=== PATIENT | male | born 1995 | race Caucasian/White ===

== ENCOUNTER 2017-11-19 21:34 | Observation (INO) ==
--- NOTE | 2017-11-19 22:17 | RAD ---
Chest one view Indication shortness of breath and chest pain Findings: There is normal configuration of the heart and mediastinum. The lungs are clear. The skelet on and regional soft tissues are unremarkable. Impression: Negative exam of the chest Reported By:
[2017-11-19 22:34] LABS: BASOPHILS # (AUTO) 0.1 X10^3/uL (0.0-0.1); BASOPHILS % (AUTO) 1.7 % (0.2-1.0); EOSINOPHILS # (AUTO) 0.2 x10^3/uL (0.0-0.2); LYMPHOCYTES # (AUTO) 2.6 X10^3/uL (1.3-2.9); LYMPHOCYTES % (AUTO) 46.2 % (21.0-51.0); MEAN CORPUSCULAR HEMOGLOBIN 29.7 pg (27.0-34.0); MEAN CORPUSCULAR HGB CONC 34.8 g/dL (33.0-35.0); MEAN CORPUSCULAR VOLUME 85.2 fL (80.0-100.0); MONOCYTES # (AUTO) 0.5 x10^3/uL (0.3-0.8); MONOCYTES % (AUTO) 9.2 % (0.0-13.0); NEUTROPHILS # (AUTO) 2.2 x10^3/uL (2.2-4.8); NEUTROPHILS % (AUTO) 38.9 % (42.0-75.0); PLATELET COUNT 171 X10^3/uL (150.0-450.0); RED BLOOD COUNT 5.05 X10^6/uL (4.7-6.0); RED CELL DISTRIBUTION WIDTH 13.1 % (11.6-16.5); WHITE BLOOD COUNT 5.7 X10^3/uL (3.6-10.0)
[2017-11-19 22:54] LABS: BLOOD UREA NITROGEN 12 mg/dL (7-18); CALCIUM 9.3 mg/dL (8.5-10.1); CARBON DIOXIDE 28.3 mmol/L (21-32); CHLORIDE 103 mmol/L (98-107); SODIUM 139 mmol/L (136-145); TROPONIN I < 0.02 ng/mL (0-1.5); eGFR NON BLACK RACES > 60 (>60)
--- NOTE | 2017-11-19 22:56 | DR.VAGB ---
HPI PCP Primary Care Physician: NFD Complaint Chief Complaint:: Patient presents with complaint of increased vaginal bleeding today. She reports that she has just come off her period week. Had baby last month, just stopped breast feeding last week. Self Treatment fo Chief Complaint: PCN Source History Provided: Patient Mode of Arrival Mode of Arrival: Ambulatory Timing Onset of Chief Complaint: 11/17/17 PMH PMH Past Medical History: No Past Surgical History: No Family History History of Family Medical Conditions: Yes Family Medical History: Diabetes Mellitus and Hypertension Social History Does patient currently use any type of tobacco product: No Have you used tobacco products in the last 12 months: Yes Type of Tobacco Use: Cigarettes Does any household member use tobacco: No Alcohol Use: None Do you use any recreational Drugs:: No Lives With: Family Lives Where: Home infectious screening In the last 2 months have you had wt loss of >10#?: NO Have you had fever, night sweats or hemotysis?: No Have you traveled outside the country in the last 6 months?: No Isolation: Standard ROS Review of Systems Constitutional: No Symptoms Reported and See HPI ENTM: No Symptoms Reported Respiratoy: No Symptoms Reported Gastrointestinal/Abdominal: No Symptoms Reported Neurological: No Symptoms Reported Musculoskeletal: No Symptoms Reported Integumentary: No Symptoms Reported Hematologic/Lymphatic: No Symptoms Reported Endocrine: Increased Hunger Psychiatric: No Symptoms Reported All Other Systems: Reviewed and Negative PE Vital Signs Vitals: Temperature 98.5 F Pulse Rate [Apical] 72 Pulse Rate 73 Respiratory Rate 18 Blood Pressure [Left Arm] 122/71 Blood Pressure 126/66 O2 Sat by Pulse Oximetry 99 General Limitations: No Limitations General Appearance: Alert and In No Apparent Distress Head Head Exam: Normal Inspection Eyes Eye exam: Normal Appearance, PERRL and EOMI ENT ENT Exam: Normal Exam and Normal Oropharynx Neck Neck Exam: Normal Inspection, Full ROM and Trachea Midline; negative Tenderness Chest Chest Inspection: Normal Inspection and Symmetric Chest Wall Rise Respiratory Respiratory Exam: Normal Lung Sounds Bilat; negative Prolonged Expiratory Phase and Respiratory Distress Respiratory Exam: Bilateral: Clear to Auscultation Cardiovascular Cardiovascular Exam: Regular Rate and Normal Rhythm Abdominal Exam Abdominal Exam: negative Distention Rectal Rectal Exam: Deferred Genitourinary : Bimanual Exam (female): Deferred Back Back Exam: Normal Inspection and Full ROM ROR Labs Reviewed Result Diagrams: 11/19/17 22:15 11/19/17 22:15 Laboratory: WBC 5.7 X10^3/uL (3.6-10.0) 11/19/17 22:15 RBC 5.05 X10^6/uL (4.7-6.0) 11/19/17 22:15 Hgb 15.0 g/dL (13.5-18.0) 11/19/17 22:15 Hct 43.0 % (42.0-54.0) 11/19/17 22:15 MCV 85.2 fL (80.0-100.0) 11/19/17 22:15 MCH 29.7 pg (27.0-34.0) 11/19/17 22:15 MCHC 34.8 g/dL (33.0-35.0) 11/19/17 22:15 RDW 13.1 % (11.6-16.5) 11/19/17 22:15 Plt Count 171 X10^3/uL (150.0-450.0) 11/19/17 22:15 MPV 8.0 fL (7.4-11.0) 11/19/17 22:15 Neut % (Auto) 38.9 % (42.0-75.0) L 11/19/17 22:15 Lymph % (Auto) 46.2 % (21.0-51.0) 11/19/17 22:15 [place] % (Auto) 9.2 % (0.0-13.0) 11/19/17 22:15 Eos % (Auto) 4.0 % (0.9-2.9) H 11/19/17 22:15 Baso % (Auto) 1.7 % (0.2-1.0) H 11/19/17 22:15 Neut # (Auto) 2.2 x10^3/uL (2.2-4.8) 11/19/17 22:15 Lymph # (Auto) 2.6 X10^3/uL (1.3-2.9) 11/19/17 22:15 [place] # (Auto) 0.5 x10^3/uL (0.3-0.8) 11/19/17 22:15 Eos # (Auto) 0.2 x10^3/uL (0.0-0.2) 11/19/17 22:15 Baso # (Auto) 0.1 X10^3/uL (0.0-0.1) 11/19/17 22:15 Absolute Nucleated RBC 0.1 /100WBC 11/19/17 22:15
[2017-11-19 22:58] LABS: ALANINE AMINOTRANSFERASE 23 Units/L (12-78); ALKALINE PHOSPHATASE 54 Units/L (46-116); ASPARTATE AMINO TRANSFERASE 17 Units/L (15-37); CKMB % 0.5 % (<4); CREATINE KINASE 280 Units/L (39-308); CREATINE KINASE MB 1.3 ng/mL (0-4.0); TOTAL PROTEIN 7.7 g/dL (6.4-8.2)
[2017-11-19] MEDS ORDERED: K-LYTE EFFERVESCENT PO ONE (23:07)
[2017-11-19] MEDS ORDERED: K-LYTE EFFERVESCENT ONE (23:08)
[2017-11-20 01:34] LABS: BILIRUBIN,URINE NEGATIVE (NEGATIVE); BLOOD/HEMOGLOBIN,URINE 1+ (NEGATIVE); GLUCOSE, URINE NEGATIVE (NEGATIVE); KETONES,URINE 1+ (NEGATIVE); LEUKOCYTE ESTERASE ,URINE NEGATIVE (NEGATIVE); NITRITES,URINE NEGATIVE (NEGATIVE); PROTEIN,URINE NEGATIVE (NEGATIVE); UROBILINOGEN,URINE 1+ (NORMAL)
--- NOTE | 2017-11-20 01:37 | DR.CP ---
HPI Time Seen Time seen: 12:05 PCP Primary Care Physician: NFD Complaint Chief Complaint:: CHEST PAIN TIGHTNESS WITH SHORTNESS OF BREATH THAT STARTED A FEW DAYS AGO. STATES DID FEEL LIKE HE WAS WHEEZING SOME. Self Treatment fo Chief Complaint: PCN Source History Provided: Patient Mode of Arrival Mode of Arrival: Ambulatory Timing Onset of Chief Complaint: 11/17/17 PMH PMH Past Medical History: No Past Surgical History: No Family History History of Family Medical Conditions: Yes Family Medical History: Diabetes Mellitus and Hypertension Social History Does patient currently use any type of tobacco product: No Have you used tobacco products in the last 12 months: Yes Type of Tobacco Use: Cigarettes Does any household member use tobacco: No Alcohol Use: None Do you use any recreational Drugs:: No Lives With: Family Lives Where: Home infectious screening In the last 2 months have you had wt loss of >10#?: NO Have you had fever, night sweats or hemotysis?: No Have you traveled outside the country in the last 6 months?: No Isolation: Standard ROS Review of Systems Constitutional: No Symptoms Reported; negative Diaphoresis, Fever, Malaise and Weakness Eyes: negative No Symptoms Reported and Eye Pain ENTM: No Symptoms Reported; negative Ear Discharge, Pulling on Ears and Hearing Loss Respiratoy: negative No Symptoms Reported, Productive Cough and Non-Productive Cough Cardiovascular: See HPI and Chest Pain (mid left chest pain and back pain w/o diaphoresis, no history of cardiac disease.); negative Palpitations, Syncope and Skin Mottling Gastrointestinal/Abdominal: negative No Symptoms Reported, See HPI, Constipation , Diarrhea, Nausea and Vomiting Genitourinary: negative No Symptoms Reported and Dysuria Neurological: No Symptoms Reported and Tingling Musculoskeletal: See HPI and Back Pain Hematologic/Lymphatic: No Symptoms Reported Endocrine: See HPI Psychiatric: No Symptoms Reported PE Vitals Vitals: Temperature 97.6 F Pulse Rate [Apical] 74 Pulse Rate 73 Respiratory Rate 20 Blood Pressure [Left Arm] 149/72 Blood Pressure 126/66 O2 Sat by Pulse Oximetry 99 General Limitations: No Limitations; negative Language Barrier and Physical Limitation General Appearance: Alert and In No Apparent Distress Head Head Exam: Normal Inspection, Atraumatic and Normocephalic Eyes Eye exam: Normal Appearance, PERRL and EOMI; negative Scleral Icterus, Conjunctival Injection, Nystagmus and Miosis ENT ENT Exam: Normal Exam, Normal Oropharynx, Normal External Ear Exam, Mucous Membranes Moist, TM's Normal Bilaterally and Other Chest Chest Inspection: Symmetric Chest Wall Rise and Tenderness (admits to left anterior chest pain) Respiratory Respiratory Exam: Normal Lung Sounds Bilat; negative Accessory Muscle Use, Chest Wall Tenderness, Prolonged Expiratory Phase, Respiratory Distress and Stridor Respiratory Exam: Bilateral: Clear to Auscultation Cardiovascular Cardiovascular Exam: Normal Rhythm and +S2; negative Gallop Pulse: Normal, Radial and Femoral Abdominal Exam Abdominal Exam: Normal Inspection, Normal Bowel Sounds and Hypoactive Bowel Sounds Abdominal Tenderness: negative RUQ, RLQ and LUQ Extremities Extremities Exam: Normal Inspection, Full ROM and Normal Capillary Refill; negative Tenderness and Joint Swelling Back Back Exam: Normal Inspection and Full ROM; negative Tenderness, (R) CVA Tenderness, (L) CVA Tenderness, Muscle Spasm, (R) Sciatic Notch Tenderness and ( L) Sciatic Notch Tendern Neurologic Neurological Exam: Alert, Oriented X3, CN II-XII Intact, Normal Gait and Reflexes Normal; negative Motor Sensory Deficit Psychiatric Psychiatric Exam: Normal Affect, Normal Mood and Flat Affect; negative Manic, Homicidal Ideation and Suicidal Ideation Skin Skin Exam: Warm, Dry and Intact; negative Diaphoresis COURSE Treatment Treatment: Chest pain protocol ROR Labs Reviewed Laboratory Results Reviewed?: Yes Result Diagrams: 11/20/17 04:14 11/20/17 11:47 Laboratory: WBC 8.7 X10^3/uL (3.6-10.0) 11/20/17 04:14 RBC 5.17 X10^6/uL (4.7-6.0) 11/20/17 04:14 Hgb 15.1 g/dL (13.5-18.0) 11/20/17 04:14 Hct 43.9 % (42.0-54.0) 11/20/17 04:14 MCV 84.7 fL (80.0-100.0) 11/20/17 04:14 MCH 29.3 pg (27.0-34.0) 11/20/17 04:14 MCHC 34.5 g/dL (33.0-35.0) 11/20/17 04:14 RDW 13.0 % (11.6-16.5) 11/20/17 04:14 Plt Count 176 X10^3/uL (150.0-450.0) 11/20/17 04:14 MPV 8.8 fL (7.4-11.0) 11/20/17 04:14 Neut % (Auto) 31.8 % (42.0-75.0) L 11/20/17 04:14 Lymph % (Auto) 52.7 % (21.0-51.0) H 11/20/17 04:14 [place] % (Auto) 9.8 % (0.0-13.0) 11/20/17 04:14 Eos % (Auto) 4.5 % (0.9-2.9) H 11/20/17 04:14 Baso % (Auto) 1.2 % (0.2-1.0) H 11/20/17 04:14 Neut # (Auto) 2.8 x10^3/uL (2.2-4.8) 11/20/17 04:14 Lymph # (Auto) 4.6 X10^3/uL (1.3-2.9) H 11/20/17 04:14 [place] # (Auto) 0.9 x10^3/uL (0.3-0.8) H 11/20/17 04:14 Eos # (Auto) 0.4 x10^3/uL (0.0-0.2) H 11/20/17 04:14 Baso # (Auto) 0.1 X10^3/uL (0.0-0.1) 11/20/17 04:14 Absolute Nucleated RBC 0.0 /100WBC 11/20/17 04:14 Sodium 140 mmol/L (136-145) 11/20/17 04:14 Corrected Sodium TNP 11/20/17 04:14 Potassium 4.0 mmol/L (3.5-5.1) 11/20/17 11:47 Chloride 104 mmol/L (98-107) 11/20/17 04:14 Carbon Dioxide 29.6 mmol/L (21-32) 11/20/17 04:14 BUN 15 mg/dL (7-18) 11/20/17 04:14 Creatinine 1.11 mg/dL (0.70-1.30) 11/20/17 04:14 Est GFR (MDRD) Af Amer > 60 (>60) 11/20/17 04:14 Est GFR (MDRD) Non-Af > 60 (>60) 11/20/17 04:14 Glucose 79 mg/dL (65-99) 11/20/17 04:14 Calcium 9.2 mg/dL (8.5-10.1) 11/20/17 04:14 Corrected Calcium TNP 11/20/17 04:14 Magnesium 2.1 mg/dL (1.7-2.9) 11/20/17 04:44 Total Bilirubin 0.40 mg/dL (0.2-1.0) 11/20/17 04:14 AST 20 Units/L (15-37) 11/20/17 04:14 ALT 22 Units/L (12-78) 11/20/17 04:14 Alkaline Phosphatase 53 Units/L (46-116) 11/20/17 04:14 Creatine Kinase 282 Units/L (39-308) 11/20/17 10:05 CK-MB (CK-2) 1.3 ng/mL (0-4.0) 11/20/17 10:05 CK/CKMB % Calc 0.5 % (<4) 11/20/17 10:05 Troponin I < 0.02 ng/mL (0-1.5) 11/20/17 10:05 Total Protein 7.7 g/dL (6.4-8.2) 11/20/17 04:14 Albumin 3.9 g/dL (3.4-5.0) 11/20/17 04:14 Globulin 3.8 g/dL (2.5-4.5) 11/20/17 04:14 Albumin/Globulin Ratio 1.0 Ratio (1.1-2.1) L 11/20/17 04:14 Triglycerides 40 mg/dL (0-150) 11/20/17 04:14 Cholesterol 139 mg/dL (0-200) 11/20/17 04:14 LDL Cholesterol, Calc 75 mg/dL (0-100) 11/20/17 04:14 HDL Cholesterol 56 mg/dL (40-60) 11/20/17 04:14 Cholesterol/HDL Ratio 2.5 (0.0-5.0) 11/20/17 04:14 Specimen Type Clean catch urine 11/20/17 01:11 Urine Color Yellow (YELLOW) 11/20/17 01:11 Urine Appearance Clear (CLEAR) 11/20/17 01:11 Urine pH 7.0 (5.0 - 8.0) 11/20/17 01:11 Ur Specific [place] 1.010 (1.000-1.030) 11/20/17 01:11 Urine Protein Negative (NEGATIVE) 11/20/17 01:11 Urine Glucose (UA) Negative (NEGATIVE) 11/20/17 01:11 Urine Ketones 1+ (NEGATIVE) 11/20/17 01:11 Urine Occult Blood 1+ (NEGATIVE) 11/20/17 01:11 Urine Nitrite Negative (NEGATIVE) 11/20/17 01:11 Urine Bilirubin Negative (NEGATIVE) 11/20/17 01:11 Urine Urobilinogen 1+ (NORMAL) 11/20/17 01:11 Ur Leukocyte Esterase Negative (NEGATIVE) 11/20/17 01:11 Urine RBC 0-2 /HPF (NONE SEEN) 11/20/17 01:11 Urine WBC None seen /HPF (NONE SEEN) 11/20/17 01:11 Ur Squamous Epith Cells Rare /HPF (NEGATIVE) 11/20/17 01:11 Urine Bacteria Negative /HPF (NEGATIVE) 11/20/17 01:11 Ur Culture Indicated? No/not indicated 11/20/17 01:11 Urine Opiates Screen Negative (NEG=<300) 11/20/17 01:11 Urine Methadone Screen Negative (NEG=<300) 11/20/17 01:11 Ur Barbiturates Screen Negative (NEG=<200) 11/20/17 01:11 Ur Phencyclidine Scrn Negative (NEG=<25) 11/20/17 01:11 Ur Amphetamines Screen Negative (NEG=<1000) 11/20/17 01:11 U Benzodiazepines Scrn Negative (NEG=<200) 11/20/17 01:11 Urine Cocaine Screen Negative (NEG=<300) 11/20/17 01:11 U Marijuana (THC) Screen Positive (NEG=<50) A 11/20/17 01:11 XRAY XRAY Findings: Chest: wnl Diagnosis Discharge Problem: Chest pain, Acute hypokalemia Instructions Instructions: Steps to Quit Smoking, [id number] Food Choices for Gastroesophageal Reflux Disease, Adult, [id number] Smoking Tobacco Information Nonspecific Chest Pain, [id number] Forms: Patient Portal ADDITIONAL NOTES Additional Notes Additional Notes: Dr Reyes was contacted, he agreed to admit for chest pain protocol
[2017-11-20 01:47] LABS: APPEARANCE,URINE CLEAR (CLEAR); BACTERIA,URINE NEGATIVE /HPF (NEGATIVE); COLOR,URINE YELLOW (YELLOW); RBC,URINE 0-2 /HPF (NONE SEEN); SQUAMOUS EPITHELIAL CELL,UR RARE /HPF (NEGATIVE)
[2017-11-20 02:37] VITALS: BMI 20.6
[2017-11-20 05:23] LABS: BASOPHILS # (AUTO) 0.1 X10^3/uL (0.0-0.1); BASOPHILS % (AUTO) 1.2 % (0.2-1.0); EOSINOPHILS # (AUTO) 0.4 x10^3/uL (0.0-0.2); EOSINOPHILS % (AUTO) 4.5 % (0.9-2.9); HEMATOCRIT 43.9 % (42.0-54.0); HEMOGLOBIN 15.1 g/dL (13.5-18.0); LYMPHOCYTES # (AUTO) 4.6 X10^3/uL (1.3-2.9); LYMPHOCYTES % (AUTO) 52.7 % (21.0-51.0); MEAN CORPUSCULAR HEMOGLOBIN 29.3 pg (27.0-34.0); MEAN CORPUSCULAR HGB CONC 34.5 g/dL (33.0-35.0); MEAN CORPUSCULAR VOLUME 84.7 fL (80.0-100.0); MEAN PLATELET VOLUME 8.8 fL (7.4-11.0); MONOCYTES # (AUTO) 0.9 x10^3/uL (0.3-0.8); MONOCYTES % (AUTO) 9.8 % (0.0-13.0); NEUTROPHILS # (AUTO) 2.8 x10^3/uL (2.2-4.8); NEUTROPHILS % (AUTO) 31.8 % (42.0-75.0); PLATELET COUNT 176 X10^3/uL (150.0-450.0); RED BLOOD COUNT 5.17 X10^6/uL (4.7-6.0); WHITE BLOOD COUNT 8.7 X10^3/uL (3.6-10.0)
[2017-11-20 05:44] LABS: ALANINE AMINOTRANSFERASE 22 Units/L (12-78); ALBUMIN 3.9 g/dL (3.4-5.0); ALKALINE PHOSPHATASE 53 Units/L (46-116); ASPARTATE AMINO TRANSFERASE 20 Units/L (15-37); BLOOD UREA NITROGEN 15 mg/dL (7-18); CALCIUM 9.2 mg/dL (8.5-10.1); CARBON DIOXIDE 29.6 mmol/L (21-32); CHLORIDE 104 mmol/L (98-107); CHOL/HDL RATIO 2.5 (0.0-5.0); CHOLESTEROL 139 mg/dL (0-200); CKMB % 0.6 % (<4); CREATINE KINASE 308 Units/L (39-308); CREATINE KINASE MB 1.9 ng/mL (0-4.0); CREATININE 1.11 mg/dL (0.70-1.30); HDL CHOLESTEROL 56 mg/dL (40-60); SODIUM 140 mmol/L (136-145); TOTAL PROTEIN 7.7 g/dL (6.4-8.2); TRIGLYCERIDES 40 mg/dL (0-150); TROPONIN I < 0.02 ng/mL (0-1.5); eGFR NON BLACK RACES > 60 (>60)
[2017-11-20] MEDS ORDERED: K-LYTE EFFERVESCENT PO PRN (06:32)
[2017-11-20] MEDS ORDERED: MAGNESIUM SULFATE 1 GRAM/100 mL PREMIX 1 GM/100 ML BAG IV PRN (06:32)
[2017-11-20] MEDS ORDERED: K-RIDER 10 MEQ/NS 100 ML 10 MEQ/100 ML BAG IV PRN (06:32)
[2017-11-20] MEDS ORDERED: POTASSIUM CHLORIDE LIQ 20 MEQ UDC PO PRN (06:32)
[2017-11-20] MEDS ORDERED: POTASSIUM CHL 40 MEQ/NS 0.45% 500 ML IV PRN (06:32)
[2017-11-20] MEDS ORDERED: POTASSIUM CHL 60 MEQ/NS 0.45% 500 ML IV PRN (06:32)
[2017-11-20] MEDS ORDERED: ASPIRIN PO SCH (09:00)
[2017-11-20 10:34] LABS: CKMB % 0.5 % (<4); CREATINE KINASE 282 Units/L (39-308); CREATINE KINASE MB 1.3 ng/mL (0-4.0); TROPONIN I < 0.02 ng/mL (0-1.5)
[2017-11-20 11:57] VITALS: BP 149/72
--- NOTE | 2017-11-28 08:17 | DR.CARTERS ---
Short Stay Summary - Admission Date Date of Admission: 11/20/17 - Discharge Date Discharge Date: 11/20/17 - Admission Diagnoses (1) Chest pain Status: Acute - Hospital Course Hospital Course: is a 22 year old black male who presented to the emergency room with complaints of chest pain with tightness, shortness of breath, and wheezing. Patient reported that his symptoms started a few days ago. He reported that the tightness in chest is worse when he lies down. He stated, the pain starts on the right side of my chest and moves to the left side. On arrival, vitals were 98.5-73-18-99%-126/66. Labs were obtained. Abnormal labs included the following : Potassium 3.2, Glucose 101, Urine drug screen: Marijuana Positive A. Urinalysis reveals: Urinalysis: Ketones 1+, Occult Blood 1+, Urobilinogen 1+, RBC 0-2, Squamous Epith Cells Rare. Chest X-Ray revealed a negative exam of the chest. EKG revealed Sinus rhythm with a heart rate of 69. Patient was admitted to the hospital for further evaluation of chest pain. We planned to obtain serial cardiac enzymes and EKGs. Otherwise, we planned to follow up with AM labs and continue to monitor patient. On morning rounds, the patient is alert and oriented, lying in bed on morning rounds. He denies chest pain this morning or since admission. His vitals this morning are 97.8-53-20-100%-118/68. Labs were obtained. Abnormal lab values include the following: potassium 3.4. Cardiac enzymes have been within normal limits. Most recent ekg revealed sinus rhythm with hr 64. We planned for discharge. Instructions for follow-up was given to patient. He verbalized understanding. Patient discharged home in stable condition with instructions to follow up in the office next week. - Discharge Medications Discharge Medications: Home Medication List NK 11/20/17 [History] Prescriptions: - Discharge Plan Disposition: 01 HOME, SELF-CARE Condition: Stable - Follow up/Referrals Follow up/Referrals: Sharri Blake [Nurse Practitioner] - 11/27/17 10:40 am - Instructions Instructions: Steps to Quit Smoking, [id number], Food Choices for Gastroesophageal Reflux Disease, Adult, [id number], Smoking Tobacco Information, Nonspecific Chest Pain, [id number] Forms: Patient Portal
== END 2017-11-20 14:40 | disposition home or self-care (01) ==
LOC: ER 21:40 → MED/SURG 21:40
PROVIDERS: ADMIT Internal Medicine; ATTEND Internal Medicine
DX: R07.89 Other chest pain; F12.90 Cannabis use, unspecified, uncomplicated; E87.6 Hypokalemia; R94.31 Abnormal electrocardiogram [ECG] [EKG]; R06.02 Shortness of breath
CPT/HCPCS: 36415; 71010; 71045; 80053; 80061; 80307; 81001; 82550; 82553; 83735; 84132; 84484; 85025; 93005; 93010; 94760; 96365; 99284; A4216; A4222; G0378; G0434; J8499